=== PATIENT | female | born 1950 | race Caucasian/White ===

== ENCOUNTER 2018-03-10 17:54 | Emergency (ER) | payer MEDICARE ==
[2018-03-10] MEDS ORDERED: Bacitracin Zinc 1 Packet ONE (18:20)
[2018-03-10] MEDS ORDERED: HYDROcodone/Acetaminophen 5/325 mg Tablet ONE (18:26)
== END 2018-03-10 18:30 | disposition home or self-care (01) ==
LOC: SCSER 17:54
DX: S61.011A Laceration without foreign body of right thumb without damage to nail, initial encounter (principal); W26.0XXA Contact with knife, initial encounter; Y92.009 Unspecified place in unspecified non-institutional (private) residence as the place of occurrence of the external cause
CPT/HCPCS: 99282

== ENCOUNTER 2018-11-10 14:12 | Emergency (ER) | payer MEDICARE ==
--- NOTE | 2018-11-10 15:01 | RAD ---
Exam:Right wrist 3 views HISTORY: Pain. Fall. COMPARISON: None FINDINGS: Dorsally angulated, distal radius fracture. There is intra-articular extension. Carpal bone s are unremarkable. There is deformity and soft tissue swelling. IMPRESSION: Distal radius fracture.
[2018-11-10] MEDS ORDERED: Ondansetron PF 4 MG/2 ML Vial ONE (15:12)
[2018-11-10] MEDS ORDERED: Morphine 4 MG/ML VIAL ONE (15:12)
[2018-11-10] MEDS ORDERED: KETAMINE 100 MG/ML (5ML VIAL) ONE (15:29)
--- NOTE | 2018-11-10 15:51 | RAD ---
Exam:2 views right forearm HISTORY: Pain. Injury. COMPARISON: None FINDINGS: Impacted distal radius fracture with dorsal angulation. Intra-articular extension. No dista l radius fractures. Unremarkable ulnar. No posttraumatic change. IMPRESSION: Distal radius fracture.
--- NOTE | 2018-11-10 16:45 | RAD ---
RIGHT WRIST TWO VIEWS: History: Follow up injury. Comparison: 11-10-18 FINDINGS: Splint material stabilizes the wrist. There is a comminuted distal radial fracture with intraarticula r extension again noted. There is improvement in position and alignment when compared to the pre-redu ction study. IMPRESSION: Improvement in position and alignment of the comminuted distal radial fracture following reduction an d splint stabilization. POS: [facility]
== END 2018-11-10 17:24 | disposition home or self-care (01) ==
LOC: SCSER 14:12
DX: S52.571A Other intraarticular fracture of lower end of right radius, initial encounter for closed fracture (principal); W01.0XXA Fall on same level from slipping, tripping and stumbling without subsequent striking against object, initial encounter
CPT/HCPCS: 25605; 96361; 96374; 96375; 99152; J2270; J2405

== ENCOUNTER 2018-11-19 12:06 | Outpatient (CLI) | payer MEDICARE ==
[2018-11-19 12:50] LABS: #Basophils 0.1 thou/uL (0.0-0.2); #Eosinphils 0.1 thou/uL (0.0-0.7); #Lymphocytes 1.6 thou/uL (1.20-3.40); #Monocytes 0.4 thou/uL (0.11-0.59); #Neutrophils 4.5 thou/uL (1.40-6.50); %Basophils 0.8 % (0.0-1.0); %Eosinophils 1.6 % (0.0-10.0); %Lymphocytes 24.1 % (21.0-51.0); %Monocytes 5.7 % (0.0-10.0); %Neutrophils 67.9 % (42.0-75.0); Hemoglobin 13.8 g/dL (12.0-16.0); Mean Corpuscular HGB CONC 33.3 g/dL (32.0-36.0); Mean Corpuscular Hemoglobin 33.3 pg (27.0-31.0); Mean Corpuscular Volume 99.8 fL (78.0-98.0); Mean Platelet Volume 7.1 fL (7.4-10.4); Platelet Count 295 thou/uL (130-400); RBC Distribution Width 12.1 % (11.5-14.5); Red Blood Cell (RBC) Count 4.14 mill/uL (4.20-5.40); White Blood Cell (WBC) Count 6.7 thou/uL (4.8-10.8)
--- NOTE | 2018-11-19 23:01 | EKG ---
Test Reason : Blood Pressure : / mmHG Vent. Rate : 071 BPM Atrial Rate : 071 BPM P-R Int : 132 ms QRS Dur : 082 ms QT Int : 406 ms P-R-T Axes : 078 067 074 degrees QTc Int : 441 ms Normal sinus rhythm Normal ECG No previous ECGs available Confirmed by Shelby HUFF ([id number]) on 11/19/2018 11:00:33 PM Referred By: CINDY Confirmed By:Shelby HUFF
== END 2018-11-19 12:07 | disposition home or self-care (01) ==
LOC: LABBT 12:06
PROVIDERS: ATTEND Orthopaedic Surgery
DX: Z01.818 Encounter for other preprocedural examination (principal); S52.571A Other intraarticular fracture of lower end of right radius, initial encounter for closed fracture
CPT/HCPCS: 85025; 93005; 93010

== ENCOUNTER 2018-11-20 09:50 | Day surgery (SDC) | payer MEDICARE ==
--- NOTE | 2018-11-19 08:46 | HP ---
HISTORY OF PRESENT ILLNESS: The patient is a 68-year-old right-hand dominant female who slipped and fell at home on 11/10/2018, sustaining intra-articular fracture of right distal radius. She underwent closed reduction and splinting in the emergency room and was subsequently referred to my office. She has improved alignment, but still has displacement and presents at this time for definitive treatment of the fracture. PAST MEDICAL HISTORY: The patient is otherwise in good health. MEDICATIONS: Normally takes no routine medications. ALLERGIES: HAS NO KNOWN ALLERGIES. FAMILY HISTORY: Otherwise unremarkable. SOCIAL HISTORY: Otherwise unremarkable. 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 REVIEW OF SYSTEMS: Otherwise unremarkable. PHYSICAL EXAMINATION: GENERAL: Reveals a healthy female. HEENT: Unremarkable. NECK: Supple. CHEST: Clear. HEART: Regular rate and rhythm. ABDOMEN: Soft and nontender. PELVIC AND RECTAL AND BREASTS: Exams are deferred. EXTREMITIES: Pertinent findings related to the right wrist; there is mild swelling. There is bruising. There is tenderness over the distal radius. The skin is intact. There is slight deformity. Neurovascular exam is intact. DIAGNOSTIC STUDIES: X-rays of the right wrist from the date of injury revealed displaced intra-articular fracture of the distal radius. There is no articular step-off. Post reduction x-rays revealed improved alignment, but there is still some displacement. Repeat x-rays in my office are essentially unchanged. There is still some slight shortening and dorsal tilting. IMPRESSION: Displaced intra-articular fracture of the right distal radius. PLAN: Open reduction and internal fixation with volar locking plate. The nature of the surgery, length of recovery, and potential complications such as infection, loss of motion, incomplete relief, neurovascular injury, delayed or nonunion, posttraumatic degenerative arthritis, and possible need to remove the implants have been discussed in detail with the patient and her . Job ID: [id number]
[2018-11-19 12:19] VITALS: BMI 21.7
[2018-11-20] MEDS ORDERED: ceFAZolin Sodium (SDC) 2 GM/100 ML BAG ONE (10:29)
[2018-11-20] MEDS ORDERED: Fentanyl 100 MCG/2 ML VIAL ONE (10:33)
[2018-11-20] MEDS ORDERED: Midazolam HCl 2 mg/2 ml Vial ONE (10:33)
[2018-11-20] MEDS ORDERED: Zolpidem Tartrate 5 MG TAB PO PRN (11:11)
[2018-11-20] MEDS ORDERED: Ropivacaine 0.2% 550 ML 550 ML NERVE BLCK SCH (11:11)
[2018-11-20] MEDS ORDERED: Ondansetron PF 4 MG/2 ML Vial IVP PRN (11:11)
[2018-11-20] MEDS ORDERED: Promethazine HCl 25 MG/ML VIAL IM PRN (11:11)
[2018-11-20] MEDS ORDERED: HYDROcodone/Acetaminophen 10/325 mg Tablet PO PRN ×2 (11:11)
[2018-11-20] MEDS ORDERED: Ketorolac Tromethamine 30 MG/ML VIAL IVP PRN (11:11)
[2018-11-20] MEDS ORDERED: traMADol HCl 50 MG TAB PO PRN ×2 (11:11)
[2018-11-20] MEDS ORDERED: Fentanyl 100 MCG/2 ML VIAL IV PRN (11:12)
--- NOTE | 2018-11-20 13:15 | RAD ---
TWO VIEWS RIGHT WRIST: 11/20/18 PROVIDED CLINICAL HISTORY: ORIF. FINDINGS: Comparison 11/10/18. Frontal and lateral spot fluoroscopic views of the right wrist are submitted. Interval placement of v olar plate and screw fixation distal radial fracture. Resultant improved alignment. IMPRESSION: As above. POS: [facility]
--- NOTE | 2018-11-20 18:34 | OP ---
DATE OF PROCEDURE: 11/20/2018 SALESPERSON BURIAL NEEDS: Alfredo Candelario PA-C ANESTHESIA: General plus supraclavicular block. PREOPERATIVE DIAGNOSIS: Intra-articular fracture right distal radius. POSTOPERATIVE DIAGNOSIS: Intra-articular fracture right distal radius. PROCEDURE PERFORMED: Open reduction and internal fixation, right distal radius with Synthes volar locking plate. DESCRIPTION OF PROCEDURE: After satisfactory anesthesia was induced in supine position, the patient was prepped and draped in routine manner. Right arm was elevated and exsanguinated with an Esmarch bandage, and the tourniquet inflated to 250 mmHg. Incision was made to the base of the thenar eminence and then curved towards the wrist flexion crease and then carried radially along the line of the flexor carpi radialis tendon. This was carried down through the subcutaneous tissues. Bleeding points were controlled with Bovie cautery. Using sharp and blunt dissection, the incision was opened and the sheath of the flexor carpi radialis tendon was split in line with the tendon and then the tendon retracted radially and the floor split longitudinally. The pronator quadratus muscle was attached and distal radius retracted ulnarly and the fracture subperiosteally exposed, taking care to avoid injury to the median nerve and the radial artery. The fracture was cleaned of all soft tissue and debris and gently manipulated into a reduced position. A Synthes volar locking plate was then affixed to the shaft revision with two K-wires. Position checked with the mini C-arm and found to be acceptable. A cortical screw was then placed leaving the plate to the radius. Four locking screws were placed in the distal fragment and the distal row of the plate after appropriate drilling and depth gauge measurements. Two additional bicortical screws were placed in the proximal plate after appropriate drilling and depth gauge measurements. There appeared to be good fracture reduction and it was stable. There was good position of the fracture and good plate and screw placed in the mini C-arm and hard copies were made. The wound was then thoroughly irrigated. Subcutaneous tissues were closed with interrupted 2-0 Vicryl, and the skin was closed with interrupted 3-0 nylon. Sterile bulky compressive dressing was applied, and the tourniquet was deflated after 56 minutes. The hand promptly pinked up. The patient was immobilized in a short-arm volar plaster splint. She was awakened and taken to the recovery room in stable condition. There were no apparent intraoperative complications. The estimated blood loss was negligible. The patient will be discharged home in satisfactory condition, instructed on ice and elevation, and given written cast care instructions. She was given a prescription for [place] 10 for pain, 36 tablets. She will be rechecked in my office in 10 to 14 days or sooner if there are any problems prior to that time. Job ID: [id number]
== END 2018-11-20 15:00 | disposition home or self-care (01) ==
LOC: SDC 09:50
PROVIDERS: ATTEND Orthopaedic Surgery
PROC: 0PSH04Z Reposition Right Radius with Internal Fixation Device, Open Approach (ICD-10-PCS; principal; 2018-11-20)
PROC: 3E0T3BZ Introduction of Anesthetic Agent into Peripheral Nerves and Plexi, Percutaneous Approach (ICD-10-PCS; 2018-11-20)
DX: S52.571A Other intraarticular fracture of lower end of right radius, initial encounter for closed fracture (principal); G89.18 Other acute postprocedural pain; Z79.1 Long term (current) use of non-steroidal anti-inflammatories (NSAID); Z79.899 Other long term (current) drug therapy; W01.0XXA Fall on same level from slipping, tripping and stumbling without subsequent striking against object, initial encounter; Y92.009 Unspecified place in unspecified non-institutional (private) residence as the place of occurrence of the external cause
CPT/HCPCS: 25608; 64416; 73100; 76000; A4306; C1713; J0690; J2250; J2795; J3010